=== PATIENT | male | born 1970 | race Two or more races ===

== ENCOUNTER 2024-08-30 11:33 | Emergency (ER) | payer MEDICAID, OTHER ==
[~2024-08-30] VITALS: Ht 170.2 cm; Wt 128.0 kg
--- NOTE | 2024-08-30 12:11 | ED.PDOC ---
History of Present Illness HPI Comments 53M with HTN and DM2 presents with two months of intermittent right big toe pain acutely worse the last couple days. He reports he took ibuprofen with some relief but he feels like he is walking on glass with his big toe. He denies any fevers, chills, nausea, vomiting, diarrhea, dysuria, polyuria, falls, trauma, or sick contacts. Chief Complaint: Lower Extremity Time Seen by MD: 11:51 Allergies: Coded Allergies: NO KNOWN ALLERGIES (Unverified , 08/30/24) Information Source: Patient Mode of Arrival: Ambulatory Past Medical History PAST MEDICAL HISTORY: DM, HTN All Other Systems: Reviewed and Negative Physical Exam General Appearance: No Apparent Distress, Normal HEENT: Normal ENT Inspection, Pharynx Normal, TMs Normal Neck: Full Range of Motion, Non-Tender, Normal, Normal Inspection Respiratory: Chest Non-Tender, Lungs Clear, No Accessory Muscle Use, No Respiratory Distress, Normal Breath Sounds Cardiovascular: No Edema, No JVD, No Murmur, No Gallop, Normal Peripheral Pulses, Regular Rate/Rhythm Breast Exam: Deferred Gastrointestinal: No Organomegaly, Non Tender, No Pulsatile Mass, Normal Bowel Sounds, Soft Genitalia: Deferred Pelvic: Deferred Rectal: Deferred Extremities: Other (right big toe tophi) Neurologic: Alert, 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 Was a procedure done?: No Differential Dx Considerations may include: gout, pseudogout, arthritis X-Ray, Labs, Meds, VS Vital Signs Date Time Temp Pulse Resp B/P (MAP) Pulse Ox O2 Delivery O2 Flow Rate FiO2 08/30/24 11:40 97.3 99 18 141/100 (114) 97 Time of 1ST Reevaluation: 12:39 Reevaluation 1ST: Improved Patient Education/Counseling: Diagnosis, Treatment Family Education/Counseling: No Family Present Departure 1 Departure Time of Disposition: 12:37 (Patient with tophi of right big toe concerning for gout. Will discharge with medications.) Impression: Primary Impression: Gout Qualified Codes: M10.071 - Idiopathic gout, right ankle and foot Disposition: 01 HOME / SELF CARE / HOMELESS Condition: Stable Additional Instructions: You likely have gout. You were prescribed colchicine. Please take as directed. For pain you can take the followinam: Ibuprofen 400mg with food Noon: Acetaminophen 1000mg 4pm: Ibuprofen 400mg with food 8pm: Acetaminophen 1000mg You should follow up with your regular doctor within one week to ensure you are doing better. If your symptoms worsen or you have any other concerns then please return to the ER. Discharged With: Self Critical Care Note Critical Care Time?: No Stability Stability form required: No Heart Score Heart Score: Heart Score Response (Comments) Value History N/A 0 EKG N/A 0 Age N/A 0 Risk Factors N/A 0 Troponin N/A 0 Total 0 FRANKIE VALLEJO MD Aug 30, 2024 12:11
[2024-08-30] MEDS: HYDROcodone-ACET 5/325MG TAB PO ONE (12:51)
[2024-08-30] MEDS: COLCHICINE 0.6 MG CAP PO ONE (12:51)
[2024-08-30] MEDS ORDERED: COLC1CAP PO (12:51)
[2024-08-30] MEDS: NAPROXEN 500 MG TAB PO ONE (12:51)
[2024-08-30 12:53] VITALS: BP 148/99; PULSE 95; RESP 19; TEMP 98.1; O2SAT 100
== END 2024-08-30 13:07 | disposition home or self-care (01) ==
LOC: ER 11:40
DX: M10.9 Gout, unspecified (principal); I10 Essential (primary) hypertension; E11.9 Type 2 diabetes mellitus without complications